=== PATIENT | male | born 1950 | race Caucasian/White ===

== ENCOUNTER 2018-03-19 08:16 | Emergency (ER) | payer OTHER ==
[~2018-03-19] VITALS: Ht 180.3 cm; Wt 136.1 kg
[2018-03-19] MEDS ORDERED: ZARELTO PO (08:30)
[2018-03-19] MEDS ORDERED: GLIMEPIRIDE4 MG (08:31)
[2018-03-19] MEDS ORDERED: KOMBIGLYZE XR1 EAC1 (08:31)
[2018-03-19] MEDS ORDERED: BETIMOL5 ML (08:32)
== END 2018-03-19 16:26 | disposition home or self-care (01) ==
LOC: ER 08:16
DX: J40 Bronchitis, not specified as acute or chronic (principal); J11.1 Influenza due to unidentified influenza virus with other respiratory manifestations